=== PATIENT | female | born 2000 | race Caucasian/White ===

== ENCOUNTER 2023-10-23 22:04 | Emergency (ER) | payer OTHER ==
[~2023-10-23] VITALS: Ht 170.1 cm; Wt 172.4 kg
[2023-10-23] MEDS ORDERED: Lopressor25 MG PO (22:33)
[2023-10-23] MEDS ORDERED: VISTARIL25 MG PO (22:33)
[2023-10-23 22:46] LABS: BASO # 0.1 10*3/uL (0.0-0.1); BASO % 0.5 % (0.0-1.0); EOS # 0.2 10*3/uL (0.0-0.4); EOS % 1.9 % (1.0-4.0); LYMPH # 2.7 10*3/uL (1.3-4.4); LYMPH % 21.4 % (27.0-41.0); MEAN CORPUSCULAR HGB 26.9 pg (27.0-31.0); MEAN CORPUSCULAR HGB CONC 31.3 g/dl (33.0-37.0); MEAN PLATELET VOLUME 10.5 fl (9.6-12.3); MONO # 0.6 10*3/uL (0.1-1.0); MONO % 4.9 % (3.0-9.0); NEUT # 8.9 10*3/uL (2.3-7.9); PLATELET COUNT AUTOMATED 328 10*3/uL (130-400); RED BLOOD COUNT 4.65 10*6/uL (4.10-5.10); WHITE BLOOD COUNT 12.6 10*3/uL (4.8-10.8)
[2023-10-23 23:08] LABS: ALKALINE PHOSPHATASE 58 U/L (46-116); BUN 10 mg/dl (9-23); CHLORIDE 106 mmol/L (98-107); LIPASE 30 U/L (12-53); POTASSIUM 3.7 mmol/L (3.4-5.1); SGPT/ALT 11 U/L (5-49); TOTAL PROTEIN 7.3 gm/dL (6.0-8.0)
[2023-10-24] MEDS ORDERED: SODIUM CHLORIDE 0.9% 1,000 ML IV ONE (03:25)
[2023-10-24] MEDS ORDERED: HYDROmorphONE Hydrochloride 0.5 MG/0.5 ML SYRINGE IV ONE (03:25)
[2023-10-24] MEDS ORDERED: Ondansetron Hydrochloride 4 MG/2 ML VIAL IV ONE (03:25)
== END 2023-10-24 04:41 | disposition home or self-care (01) ==
LOC: ED 22:04
PROVIDERS: Internal Medicine
DX: K82.8 Other specified diseases of gallbladder (principal); D72.829 Elevated white blood cell count, unspecified

== ENCOUNTER 2024-01-02 19:17 | Emergency (ER) | payer MEDICARE ==
[~2024-01-02] VITALS: Ht 170.1 cm; Wt 172.4 kg
[~2024-01-02 19:17] MED LIST: Lopressor25 MG PO; VISTARIL25 MG PO
[2024-01-02] MEDS ORDERED: VALIUM5 MG PO (19:35)
[2024-01-02 20:31] LABS: BASO % 0.5 % (0.0-1.0); EOS # 0.1 10*3/uL (0.0-0.4); EOS % 1.7 % (1.0-4.0); HEMATOCRIT 38.3 % (37.0-47.0); MEAN CELL VOLUME 84.7 fl (81.0-99.0); MEAN CORPUSCULAR HGB 26.8 pg (27.0-31.0); MEAN CORPUSCULAR HGB CONC 31.6 g/dl (33.0-37.0); MEAN PLATELET VOLUME 9.5 fl (9.6-12.3); MONO # 0.3 10*3/uL (0.1-1.0); MONO % 5.1 % (3.0-9.0); NEUT # 3.9 10*3/uL (2.3-7.9); NEUT % 57.7 % (47.0-73.0); PLATELET COUNT AUTOMATED 288 10*3/uL (130-400); RED BLOOD COUNT 4.52 10*6/uL (4.10-5.10); RED CELL DISTRI WIDTH 14.5 % (0-14.5); WHITE BLOOD COUNT 6.7 10*3/uL (4.8-10.8)
[2024-01-02] MEDS ORDERED: SODIUM CHLORIDE 0.9% 500 ML IV ONE (20:45)
[2024-01-02 20:54] LABS: ALKALINE PHOSPHATASE 52 U/L (46-116); BUN 13 mg/dl (9-23); CHLORIDE 108 mmol/L (98-107); POTASSIUM 3.9 mmol/L (3.4-5.1); SGPT/ALT 10 U/L (5-49); TOTAL PROTEIN 7.3 gm/dL (6.0-8.0)
[2024-01-02 21:07] LABS: BILIRUBIN Negative (Negative); BLOOD 3+ (Negative); CLARITY Clear (Clear); COLOR Yellow (Yellow); GLUCOSE Negative (Negative); KETONE Negative (Negative); LEUKO ESTERASE Negative (Negative); NITRITE Negative (Negative); SPECIFIC GRAVITY 1.025 (1.001-1.030)
[2024-01-02 21:13] LABS: WBC 0-2 wbc/hpf (0-5)
[2024-01-02] MEDS ORDERED: LORazepam 0.5 MG TAB PO ONE (23:40)
== END 2024-01-02 23:46 | disposition home or self-care (01) ==
LOC: ED 19:17
PROVIDERS: Nurse Practitioner
DX: D49.89 Neoplasm of unspecified behavior of other specified sites (principal); F41.9 Anxiety disorder, unspecified; R10.9 Unspecified abdominal pain; M54.2 Cervicalgia; F12.10 Cannabis abuse, uncomplicated